=== PATIENT | female | born 1955 | race American Indian/Alaskan Native ===

== ENCOUNTER 2021-10-15 10:18 | Day surgery (SDC) | payer MEDICARE ==
[2021-10-15 11:55] LABS: Basophils % (Auto) 0.5 % (0.0-1.8); Eosinophils # (Auto) 0.1 K/mm3 (0.0-0.4); Eosinophils % (Auto) 0.9 % (0.0-4.3); Hematocrit 38.9 % (30.3-42.9); Lymphocytes # (Auto) 2.3 K/mm3 (1.2-5.4); Lymphocytes % (Auto) 37.8 % (13.4-35.0); Mean Corpuscular HGB Conc 34 % (30-34); Mean Corpuscular Volume 88 fl (79-97); Monocytes # (Auto) 0.6 K/mm3 (0.0-0.8); Monocytes % (Auto) 9.2 % (0.0-7.3); Platelet Count 373 K/mm3 (140-440); Red Blood Count 4.41 M/mm3 (3.65-5.03); Red Cell Distribution Width 13.7 % (13.2-15.2)
[2021-10-15] MEDS: SODIUM CHLORIDE 0.9% 500 ML 500 ML IV SCH ×3 (12:06→13:10)
[2021-10-15 12:08] LABS: INR 0.82 (0.87-1.13)
[2021-10-15 12:09] LABS: BUN/Creatinine Ratio 16; Blood Urea Nitrogen 13 mg/dL (7-17); Calcium 9.7 mg/dL (8.4-10.2); Hemolysis Index 4
[2021-10-15] MEDS ORDERED: ASPIRIN EC 325 MG TAB PO ONE (12:30)
[2021-10-15] MEDS: fentaNYL 100 MCG/2 ML INJ ONE ×3 (12:40→13:30)
[2021-10-15] MEDS: MIDAZOLAM 2 MG/2 ML INJ ONE ×2 (12:40→13:10)
[2021-10-15] MEDS: LIDOCAINE (2%) 20 MG/1 ML VIAL 20 ML MDV INFILTRATI ONE ×2 (12:54→13:13)
[2021-10-15] MEDS: HEPARIN 10,000 UNITS/10 ML VIAL ONE ×3 (12:55→13:15)
[2021-10-15] MEDS: VERAPAMIL 5 MG/2 ML INJ ONE ×3 (12:55→13:15)
[2021-10-15] MEDS: NITROGLYCERIN SYRINGE 3 ML ONE ×2 (12:56→13:15)
[2021-10-15] MEDS: HEPARIN/NS 5000 UNIT/500ML 1,000 ML IR ONE ×2 (12:57→13:20)
--- NOTE | 2021-10-15 13:55 | Prelim Cardiac Cath Report ---
Preliminary Cath Report - Other Findings Estimated blood loss: none Dominance: right Coronary Anatomy: Normal Cors, Right dominant system Short left main no disease, bifurcates into LAD and C/x LAD is large no disease C/x is large no disease RCA is large no disease LVEDP 25 no gradient EDP secondary to HTN Plan Risk Factor Modification Address HTN as outpt Post Diagnosis: Normal right dominant system elevated EDP c/w HTN. Recommendations: risk factor modification
[2021-10-15] MEDS ORDERED: HYDROcodone/ACETAMINOPHEN 5-325 MG TAB PO PRN (14:30)
[2021-10-15] MEDS ORDERED: traMADol 50 MG TAB PO PRN (14:30)
[2021-10-15 15:33] VITALS: BP 135/89
--- NOTE | 2021-10-16 14:38 | Electrocardiograph Report ---
[facility] Test Date: 2021-10-15 Test Time: 11:50:34 Pat Name: EDGAR HAMMONDS Department: Room: Gender: F [employer]: CHIP : [id number] Requested By: GAMAL ORDONEZ Order Number: [id number] Reading MD: Munira Reynolds Measurements Intervals [place] Rate: 92 P: 44 UT: 180 QRS: -13 QRSD: 89 T: -24 QT: 365 QTc: 448 Interpretive Statements Sinus rhythm Ventricular premature complex Left ventricle hypertrophy No previous ECG available for comparison Electronically Signed On 10-16-2021 14:37:38 EST by Munira Reynolds
--- NOTE | 2021-12-24 07:45 | Operative Report ---
DATE OF SURGERY: 10/15/2021 CARDIAC CATHETERIZATION REPORT PROCEDURE DESCRIPTION: The patient was prepped in the usual sterile fashion. Moderate sedation protocol was utilized. Access was obtained through the right radial artery using the standard procedure. Standard catheters were used for the diagnostic procedure. The patient tolerated the procedure well and left the catheterization table in stable condition. A TR band was applied for hemostasis. FINDINGS: Aortic pressure 148/95. Left ventricular end-diastolic filling pressure is 27. No gradient across the aortic valve. Left contractility was not accessed. There was minimal blood loss. CORONARY ANATOMY: 1. This is a right dominant system. 2. The left main is free of significant disease and bifurcates into the LAD and circumflex artery. 3. LAD: The LAD system is free of significant disease. 4. The circumflex is free of significant disease. 5. The right coronary is dominant and free of significant disease. FINAL CONCLUSIONS: 1. Normal coronary arteries. 2. Elevated end-diastolic filling pressure consistent with the patient's prior diagnosis of hypertension. PLAN: 1. No significant coronary artery disease. Aggressive risk factor modification focussing on blood pressure, diet, exercise to reduce cholesterol. 2. Followup in 1-2 weeks to evaluate puncture site of the catheterization. TID: [id number] RECEIPT: [id number] GP/JOSE
== END 2021-10-15 16:30 | disposition home or self-care (01) ==
LOC: CATHLABREC 10:18
PROVIDERS: ATTEND Internal Medicine Cardiovascular Disease
DX: I10 Essential (primary) hypertension (principal); E78.5 Hyperlipidemia, unspecified; E66.9 Obesity, unspecified; R94.39 Abnormal result of other cardiovascular function study; Z79.899 Other long term (current) drug therapy; Z87.891 Personal history of nicotine dependence; Z98.890 Other specified postprocedural states; Z68.33 Body mass index [BMI] 33.0-33.9, adult
CPT/HCPCS: 36415; 80048; 85025; 85610; 93005; 93010; 93458; 99156; 99157; C1769; C1887; C1894; J1644; J1815; J2250; J3010; J3490; J7040; Q9967